=== PATIENT | female | born 1970 | race Caucasian/White ===

== ENCOUNTER 2019-08-25 13:11 | Emergency (ER) | payer BC ==
--- NOTE | 2019-08-25 13:23 | ED ---
Head Injury - HPI Summary HPI Summary: This pt is a 48 y/o female presenting to [facility] c/o worsening headache s/p head injury 2 days ago while snowboarding. Pt reports she was snowboarding 2 days ago with a helmet on when she fell back and had head strike against the ice. Pt states her helmet cracked open. She does not think she had LOC. Pt notes today she feels worse than 2 days ago, feeling "in slow motion," "like I just got off a boat," with a warm feeling in her head. Pt additionally endorses neck pain, nausea, and blurry vision. She reports she walked her dog today and felt like needing to sit down on the curb; she usually walks her dog without any difficulties. Denies neck pain with swallowing or tingling, numbness or weakness in UE or LE. PMHx: asthma. Pt only takes asthma medications. Denies taking anticoagulants. Denies tobacco and drug use. Pt reports rare alcohol use. - History Of Current Complaint Chief Complaint: EDHeadInjury Stated Complaint: HEAD INJURY Time Seen by Provider: 08/25/19 13:18 Hx Obtained From: Patient Mechanism Of Injury: Direct Blow Onset/Duration: Started Days Ago, Still Present Onset of Pain: Immediate Severity Initially: Mild Pain Intensity: 3 Pain Scale Used: 0-10 Numeric Location: Diffuse Aggravating Factor(s): Other: - nothing Alleviating Factor(s): Other: - nothing Associated Signs And Symptoms: Neck Pain, Nausea, Headache, Visual Changes - blurry vision, Other: - NEGATIVE: LOC - Allergies/Home Medications Allergies/Adverse Reactions: Allergies Allergy/AdvReac Type Severity Reaction Status Date / Time naproxen Allergy Swelling Verified 08/25/19 13:17 Of Face,Lips,& Throat Home Medications: Home Medications Cannabidiol (CBD) Extract (NF) [Epidiolex (NF)] 100 mg PO DAILY 08/25/19 [ History Confirmed 08/25/19] Melatonin (NF) 1 tab PO BEDTIME PRN 08/25/19 [History Confirmed 08/25/19] PMH/Surg Hx/FS Hx/Imm Hx Endocrine/Hematology History: Denies: Hx Diabetes Cardiovascular History: Denies: Hx Congestive Heart Failure, Hx Hypertension, Hx Pacemaker/ICD Respiratory History: Reports: Hx Asthma, Hx Seasonal Allergies GI History: Reports: Hx Gastroesophageal Reflux Disease - intermittent History: Denies: Hx Renal Disease Sensory History: Reports: Hx Contacts or Glasses Denies: Hx Hearing Aid Opthamlomology History: Reports: Hx Contacts or Glasses Psychiatric History: Reports: Hx Anxiety Denies: Hx Panic Disorder - Cancer History Hx Chemotherapy: No Hx Radiation Therapy: No - Surgical History Surgery Procedure, Year, and Place: [facility] SECTION X1, lumpectomy LEFT BREAST Infectious Disease History: No Infectious Disease History: Denies: Traveled Outside the [place] in Last 30 Days - Family History Known Family History: Positive: Cardiac Disease, Hypertension - Social History Alcohol Use: Rare Substance Use Type: Reports: None Hx Tobacco Use: No Smoking Status (MU): Never Smoked Tobacco Review of Systems Negative: Fever Positive: Blurred Vision Positive: Nausea Musculoskeletal: Other - POSITIVE: neck pain Neurological: Other - POSITIVE: "slow motion". NEGATIVE: LOC Positive: Headache. Negative: Weakness, Paresthesia, Numbness All Other Systems Reviewed And Are Negative: Yes Physical Exam - Summary Physical Exam Summary: VITAL SIGNS: Reviewed. GENERAL: Patient is a well-developed and nourished female who is lying comfortable in the stretcher. Patient is not in any acute respiratory distress. HEAD AND FACE: No signs of trauma. No ecchymosis, hematomas or skull depressions. No sinus tenderness. EYES: PERRLA, EOMI x 2, No injected conjunctiva, no nystagmus. EARS: Hearing grossly intact. Ear canals and tympanic membranes are within normal limits. MOUTH: Oropharynx within normal limits. NECK: Supple, trachea is midline, no adenopathy, no JVD, no carotid bruit, no c- spine tenderness, neck with full ROM. CHEST: Symmetric, no tenderness at palpation. LUNGS: Clear to auscultation bilaterally. No wheezing or crackles. CVS: Regular rate and rhythm, S1 and S2 present, no murmurs or gallops appreciated. ABDOMEN: Soft, non-tender. No signs of distention. No rebound, no guarding, and no masses palpated. Bowel sounds are normal. EXTREMITIES: FROM in all major joints, no edema, no cyanosis or clubbing. NEURO: Alert and oriented x 3. No acute neurological deficits. Speech is normal and follows commands. SKIN: Dry and warm. GCS: 15 Triage Information Reviewed: Yes Vital Signs On Initial Exam: Initial Vitals Temp Pulse Resp BP Pulse Ox 98.1 F 61 16 129/77 99 08/25/19 13:13 08/25/19 13:13 08/25/19 13:13 08/25/19 13:13 08/25/19 13:13 Vital Signs Reviewed: Yes Procedures - Sedation Patient Received Moderate/Deep Sedation with Procedure: No Diagnostics - Vital Signs Vital Signs Temp Pulse Resp BP Pulse Ox 08/25/19 13:13 98.1 F 61 16 129/77 99 - Laboratory Lab Statement: Any lab studies that have been ordered have been reviewed, and results considered in the medical decision making process. - CT Brain CT CT Interpretation Completed By: Radiologist Summary of CT Findings: IMPRESSION: No acute intracranial pathology. Dr. Orlando has reviewed this report. Cervical spine CT CT Interpretation Completed By: Radiologist Summary of CT Findings: IMPRESSION: Mild degenerative disc disease most advanced at C5-C6. No acute osseous injury to the cervical spine. Dr. Orlando has reviewed this report. Head Injury Course/Dx Assessment/Plan: This pt is a 48 y/o female presenting to [facility] c/o worsening headache s/p head injury 2 days ago while snowboarding. Pt reports she was snowboarding 2 days ago with a helmet on when she fell back and had head strike against the ice. Pt states her helmet cracked open. She does not think she had LOC. Pt notes today she feels worse than 2 days ago, feeling "in slow motion," "like I just got off a boat," with a warm feeling in her head. Pt additionally endorses neck pain, nausea, and blurry vision. She reports she walked her dog today and felt like needing to sit down on the curb; she usually walks her dog without any difficulties. Denies neck pain with swallowing or tingling, numbness or weakness in UE or LE. PMHx: asthma. Pt only takes asthma medications. Denies taking anticoagulants. Denies tobacco and drug use. Pt reports rare alcohol use. Head CT and C-spine CT with no acute pathology. The patient continues to have normal neurological exam. She will be discharged home with follow-up from her primary care physician. She was given a prescription for Zofran if she develops any nausea vomiting. Patient was instructed to return to the ED for any worsening or new symptoms. - Diagnoses Provider Diagnoses: [facility] Discharge ED - Sign-Out/Discharge Documenting (check all that apply): Patient Departure - Discharge home - Discharge Plan Condition: Stable Disposition: HOME Prescriptions: Ondansetron ODT TAB* [Zofran 4 MG Odt TAB*] 4 mg PO Q8H PRN #10 tab.odt PRN Reason: Nausea Patient Education Materials: [facility] (ED) Forms: *Work Release Referrals: Imani Suarez MD [Primary Care Provider] - Additional Instructions: Follow up with your primary care provider in 2-3 days. RETURN TO THE ED FOR ANY WORSENING OR NEW SYMPTOMS. - Billing Disposition and Condition Condition: STABLE Disposition: Home - Attestation Statements Document Initiated by Scribe: Yes Documenting Scribe: Cammie Valles Provider For Whom Herman is Documenting (Include Credential): Modesto Orlando MD Scribe Attestation: Cammie Conley scribed for Modesto Orlando MD on 08/25/19 at 1840. Scribe Documentation Reviewed: Yes Provider Attestation: The documentation as recorded by the Cammie esquivel accurately reflects the service I personally performed and the decisions made by , Modesto Orlando MD Status of Scribe Document: Viewed
[2019-08-25 14:14] VITALS: BP 118/60
== END 2019-08-25 14:13 | disposition home or self-care (01) ==
LOC: ED 13:11
DX: S06.0X0A Concussion without loss of consciousness, initial encounter (principal); W00.0XXA Fall on same level due to ice and snow, initial encounter; Y93.23 Activity, snow (alpine) (downhill) skiing, snowboarding, sledding, tobogganing and snow tubing; Y92.9 Unspecified place or not applicable; M50.322 Other cervical disc degeneration at C5-C6 level; J45.909 Unspecified asthma, uncomplicated; Z88.6 Allergy status to analgesic agent
CPT/HCPCS: 70450; 72125; 99282

== ENCOUNTER 2023-02-21 15:21 | Observation (INO) ==
[2023-02-21 15:40] LABS: ABS Basophils 0.1 10^3/uL (0.0-0.1); ABS Lymphocytes 1.6 10^3/uL (1.0-4.8); ABS Monocytes 0.5 10^3/uL (0.0-0.9); ABS Neutrophils 7.4 10^3/uL (1.5-7.6); ABS Nucleated RBC 0.01 10^3/ul; Hematocrit 39.1 % (35-45); Hemoglobin 13.4 g/dL (11.5-14.3); Lymphocyte % 16.7 %; Mean Corpuscular Hemoglobin 31.8 pg (27-33); Mean Corpuscular Hgb Conc 34.4 g/dL (31-36); Mean Corpuscular Volume 92.6 fL (80-97); Mean Platelet Volume 7.1 fL (7.5-11.2); Nucleated Red Blood Cells % 0.1 /100 WBC (0.0-0.4); Platelet Count 253 10^3/uL (150-450); Red Blood Count 4.22 10^6/uL (3.63-4.92); Red Cell Distribution Width 12.9 % (12-17); White Blood Count 9.7 10^3/uL (3.8-11.8)
[2023-02-21 15:55] LABS: Albumin 4.2 g/dL (3.2-5.2); Anion Gap 6 mmol/L (2-16); CO2 Carbon Dioxide 25 mmol/L (22-32); Chloride 99 mmol/L (101-111); Potassium 3.9 mmol/L (3.5-5.0); Sodium 130 mmol/L (135-145)
[2023-02-21 16:01] LABS: ALT 14 U/L (7-52); AST 14 U/L (13-39); Albumin/Globulin Ratio 1.6 (1-3); Alkaline Phosphatase 70 U/L (35-149); Blood Urea Nitrogen 10 mg/dL (6-24); C Reactive Protein 2.99 mg/L (<8.01); Creatinine, Serum 0.75 mg/dL (0.51-0.95); Globulin 2.7 g/dL (2-4); Glucose 140 mg/dL (70-100); Total Protein 6.9 g/dL (6.4-8.9); eGFR CKD-EPI 95.1 (>60)
[2023-02-21 16:06] LABS: High Sens Troponin Baseline < 3 pg/mL (<15)
[2023-02-21] MEDS ORDERED: Lactated Ringers 1000 ml BAG 1,000 ML IV ONE (16:07)
[2023-02-21 16:17] LABS: INR 1.05 (0.88-1.18)
[2023-02-21 17:13] LABS: High Sensitivity Troponin 1 Hr 3 pg/mL (<15)
[2023-02-21 17:33] LABS: Erythrocyte Sed Rate 4 mm/Hr (0-29)
[2023-02-21 19:55] LABS: Magnesium 2.1 mg/dL (1.9-2.7)
[2023-02-21 21:28] LABS: TSH Ultra Thyroid Stim Horm 0.8 mcIU/mL (0.34-5.60)
[2023-02-21 21:30] LABS: Free T4 1.04 ng/dL (0.61-1.12)
[2023-02-21] MEDS ORDERED: Albuterol HFA INHALER 8 gm MDI INH PRN (23:45)
[2023-02-22 00:46] LABS: Folate 10.6 ng/mL (5.90-24.80)
[2023-02-22 06:12] LABS: ABS Basophils 0.1 10^3/uL (0.0-0.1); ABS Eosinophils 0.1 10^3/uL (0.0-0.5); ABS Monocytes 0.7 10^3/uL (0.0-0.9); ABS Neutrophils 2.5 10^3/uL (1.5-7.6); ABS Nucleated RBC 0.01 10^3/ul; Eosinophil % 1.1 %; Hematocrit 35.4 % (35-45); Hemoglobin 12.6 g/dL (11.5-14.3); Lymphocyte % 54.3 %; Mean Corpuscular Hemoglobin 33.1 pg (27-33); Mean Corpuscular Hgb Conc 35.5 g/dL (31-36); Mean Corpuscular Volume 93.2 fL (80-97); Mean Platelet Volume 7.1 fL (7.5-11.2); Nucleated Red Blood Cells % 0.1 /100 WBC (0.0-0.4); Platelet Count 217 10^3/uL (150-450); Red Blood Count 3.79 10^6/uL (3.63-4.92); Red Cell Distribution Width 12.7 % (12-17); White Blood Count 7.4 10^3/uL (3.8-11.8)
[2023-02-22 06:36] LABS: Calcium 8.7 mg/dL (8.6-10.3); Creatinine, Serum 0.76 mg/dL (0.51-0.95); Magnesium 2.2 mg/dL (1.9-2.7); Potassium 3.5 mmol/L (3.5-5.0); eGFR CKD-EPI 93.6 (>60)
[2023-02-22] MEDS ORDERED: Potassium EFFERVES 25 meq TAB PO ONE (08:23)
[2023-02-22] MEDS ORDERED: Meloxicam 7.5 mg TAB (NF) PO SCH (09:00)
[2023-02-22] MEDS ORDERED: Ondansetron 4 mg VIAL 2 MG/ML 2 ml VIAL IV PRN (10:54)
[2023-02-22] MEDS ORDERED: Lactated Ringers 1000 ml BAG 1,000 ML IV ONE (10:55)
[2023-02-22] MEDS ORDERED: Mometasone 220 MCG MDI INH SCH (19:00)
[2023-02-22 19:06] VITALS: BP 107/63
== END 2023-02-22 20:00 | disposition home or self-care (01) ==
LOC: ED 15:21 → EDHOLD 15:21 → SUATTDRO 22:02 → EDHOLD 02-22 19:05
PROVIDERS: ADMIT Student in an Organized Health Care Education/Training Program; ATTEND Internal Medicine